=== PATIENT | female | born 1965 | race Caucasian/White ===

== ENCOUNTER → 2020-06-13 | Day surgery (SDC) | payer MEDICARE ==
[~2020-06-13] MED LIST: AMITRIPTYLINE H10 MG PO; AMLODIPINE BESYL5 MG PO; CYCLOBENZAPRINE5 MG PO; CYMBALTA30 MG PO; DILTIAZEM ER240 M1 PO; GLIMEPIRIDE2 MG PO; HYDROMORPHONE HC8 MG PO; HYDROXYZIN10 MG/5 ML PO; HYDROXYZINE HCL10 MG PO; IPRATROPIU0.2 MG/1 M; LEVOTHYROXINE50 MCG PO; LIDOCAINE1 EA TOP; METFORMIN HCL500 M2 PO; NOVOLOG100 UNIT/1 SC; OMEPRAZOLE40 MG PO; OXYBUTYNIN CHLOR5 M1 PO; SEROQUEL100 MG PO; STOOL SOFTENER1 EACH PO; TRESIBA100 UNIT/1 SQ; TRIAMTERENE-HCTZ1 EA PO; TRULICITY1.5 MG/0.5 SQ; VITAMIN D1000 UNI1 PO
[2020-06-13 10:10] VITALS: BP 116/71
== END | disposition home or self-care (01) ==
LOC: OR 06:58
PROVIDERS: ATTEND Internal Medicine Gastroenterology
DX: Z12.11 Encounter for screening for malignant neoplasm of colon (principal); D12.5 Benign neoplasm of sigmoid colon; K62.1 Rectal polyp; K29.70 Gastritis, unspecified, without bleeding; K29.80 Duodenitis without bleeding; K31.89 Other diseases of stomach and duodenum; K20.90 Esophagitis, unspecified without bleeding; K64.8 Other hemorrhoids; E11.9 Type 2 diabetes mellitus without complications; R00.0 Tachycardia, unspecified; G83.10 Monoplegia of lower limb affecting unspecified side; G83.4 Cauda equina syndrome; Z88.1 Allergy status to other antibiotic agents; Z88.2 Allergy status to sulfonamides; Z88.8 Allergy status to other drugs, medicaments and biological substances; Z01.810 Encounter for preprocedural cardiovascular examination; Z01.812 Encounter for preprocedural laboratory examination; Z20.822 Contact with and (suspected) exposure to COVID-19; Z20.1 Contact with and (suspected) exposure to tuberculosis; Z79.4 Long term (current) use of insulin; Z68.43 Body mass index [BMI] 50.0-59.9, adult; Z87.01 Personal history of pneumonia (recurrent); Z87.11 Personal history of peptic ulcer disease
CPT/HCPCS: 36415; 43239; 45378; 45384; 45385; 82948; 88305; 88312; 93005; U0002

== ENCOUNTER → 2020-07-06 | Outpatient (CLI) | payer MEDICARE ==
[~2020-07-06] MED LIST changes: +IOPAMIDOL 370 MG/ML 200 ML INFUS..BTL INJ ONE; +SODIUM CHLORIDE 0.9% 50ML 50 ML ONE
[2020-07-06 16:15] LABS: BLOOD UREA NITROGEN 8 mg/dL (7-26); BUN/CREATININE RATIO 10 (6-25); CREATININE, SERUM 0.81 mg/dL (0.57-1.11); EST GLOMERULAR FILTRATION RATE > 60 ML/MIN (60-)
== END ==
LOC: CT 15:27
PROVIDERS: ATTEND Internal Medicine Gastroenterology
DX: R10.84 Generalized abdominal pain (principal); Z86.010 Personal history of colon polyps
CPT/HCPCS: 36415; 82565; 84520; Q9967

== ENCOUNTER → 2020-07-10 | Day surgery (SDC) | payer MEDICARE ==
[~2020-07-10] MED LIST changes: +FENTANYL CITRATE/PF 100MCG/2 ML INJ ONE; +INSULIN REGULAR, HUMAN 100 UNIT/1 ML 3ML VIAL ONE; -IOPAMIDOL 370 MG/ML 200 ML INFUS..BTL INJ ONE; +MIDAZOLAM HCL 5 MG/ML VIAL ONE; +PROPOFOL IV EMULSION 10 MG/ML 20 ML VIAL ONE; -SODIUM CHLORIDE 0.9% 50ML 50 ML ONE
[2020-07-10 13:45] VITALS: BP 136/79
== END | disposition home or self-care (01) ==
LOC: OR 11:08
PROVIDERS: ATTEND Internal Medicine Gastroenterology
DX: K31.9 Disease of stomach and duodenum, unspecified (principal); Z68.41 Body mass index [BMI] 40.0-44.9, adult; Z86.010 Personal history of colon polyps; I10 Essential (primary) hypertension; Z88.1 Allergy status to other antibiotic agents; Z88.2 Allergy status to sulfonamides; Z88.8 Allergy status to other drugs, medicaments and biological substances; E11.9 Type 2 diabetes mellitus without complications; K20.90 Esophagitis, unspecified without bleeding; K29.70 Gastritis, unspecified, without bleeding; Z20.822 Contact with and (suspected) exposure to COVID-19; Z01.812 Encounter for preprocedural laboratory examination; Z79.4 Long term (current) use of insulin
CPT/HCPCS: 36415; 43239; 82948; 88305; 88312; J2250; J2704; J3010; U0002; J1817

== ENCOUNTER → 2020-07-30 | Outpatient (CLI) | payer MEDICARE ==
[~2020-07-30] MED LIST changes: -FENTANYL CITRATE/PF 100MCG/2 ML INJ ONE; -INSULIN REGULAR, HUMAN 100 UNIT/1 ML 3ML VIAL ONE; +IOPAMIDOL 370 MG/ML 200 ML INFUS..BTL INJ ONE; -MIDAZOLAM HCL 5 MG/ML VIAL ONE; -PROPOFOL IV EMULSION 10 MG/ML 20 ML VIAL ONE; +SODIUM CHLORIDE 0.9% 50ML 50 ML ONE
[2020-07-30 16:01] LABS: BLOOD UREA NITROGEN 12 mg/dL (7-26); BUN/CREATININE RATIO 16 (6-25); CREATININE, SERUM 0.76 mg/dL (0.57-1.11); EST GLOMERULAR FILTRATION RATE > 60 ML/MIN (60-)
== END ==
LOC: CT 15:21
PROVIDERS: ATTEND Internal Medicine Gastroenterology
DX: R10.9 Unspecified abdominal pain (principal); Z86.010 Personal history of colon polyps
CPT/HCPCS: 36415; 74177; 82565; 84520; Q9967

== ENCOUNTER 2024-10-22 16:48 | Emergency (ER) | payer MEDICARE ==
[~2024-10-22] VITALS: Ht 162.6 cm; Wt 94.0 kg
[~2024-10-22 16:48] MED LIST changes: -IOPAMIDOL 370 MG/ML 200 ML INFUS..BTL INJ ONE; -SODIUM CHLORIDE 0.9% 50ML 50 ML ONE
[2024-10-22] MEDS ORDERED: CYMBALTA30 MG (17:39)
[2024-10-22] MEDS ORDERED: MORPHINE SULFAT30 M2 PO (17:39)
[2024-10-22] MEDS ORDERED: METHADONE HCL10 MG PO (17:39)
[2024-10-22] MEDS ORDERED: PAMELOR25 MG PO (17:39)
[2024-10-22] MEDS: PROMETHAZINE HCL (IM) 25 MG/ML VIAL IM ONE (17:54)
[2024-10-22] MEDS: SODIUM CHLORIDE 0.9% 1000ML 1,000 ML IV ONE (17:54)
[2024-10-22] MEDS: FAMOTIDINE 20 MG/2 ML VIAL IV STA (17:54)
[2024-10-22] MEDS: INSULIN REGULAR, HUMAN 100 UNIT/1 ML SQ ONE (19:05)
[2024-10-22] MEDS: INSULIN REGULAR, HUMAN 100 UNIT/1 ML IV ONE (19:53)
[2024-10-22] MEDS ORDERED: PROMETHAZINE HC25 M1 PO (19:55)
[2024-10-22] MEDS ORDERED: METFORMIN HCL500 MG PO (19:58)
[2024-10-22 20:09] VITALS: PULSE 89; RESP 18; TEMP 98.8
[2024-10-22 20:16] VITALS: BP 141/76; PULSE 89; RESP 18; TEMP 98.8; O2SAT 99
== END 2024-10-22 20:18 | disposition home or self-care (01) ==
LOC: FSED 17:05
DX: R51.9 Headache, unspecified (principal); R11.2 Nausea with vomiting, unspecified; R19.7 Diarrhea, unspecified; E86.0 Dehydration; E11.65 Type 2 diabetes mellitus with hyperglycemia; I10 Essential (primary) hypertension; K76.9 Liver disease, unspecified; E03.9 Hypothyroidism, unspecified; K21.9 Gastro-esophageal reflux disease without esophagitis; Z87.19 Personal history of other diseases of the digestive system
CPT/HCPCS: 36415; 70450; 80053; 80307; 81003; 82948; 85025; 96372; 96374; 99284; J1308; J2550; J7030